=== PATIENT | male | born 1935 | race African-American/Black ===

== ENCOUNTER 2016-12-11 10:53 | Outpatient (CLI) | payer MEDICARE, OTHER ==
--- NOTE | 2016-12-11 13:25 | RAD ---
3 VIEWS RIGHT ANKLE: Date: 12/11/16 HISTORY: Follow-up fracture. COMPARISON: None available. FINDINGS: There is a comminuted fracture partially imaged involving the distal right tibial metaphysis. There is also fracture involving the distal right fibula with associated periosteal reaction consistent wi th smooth, benign-appearing periosteal reaction suggesting interval healing of the distal right fibu lar fracture. There is callus formation seen anterior and medial to the fracture involving the dista l tibia, as well as laterally suggesting mild interval healing. There is mottled appearance of the talus, some of which could be related to disuse osteopenia. Talus is difficult to further evaluate on this exam. Vascular calcifications seen. IMPRESSION: 1. Healing fractures involving the distal tibia and fibula with persistent mild separation of fract ure fragments involving the distal tibia. 2. 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 3. Subcutaneous soft tissue swelling at the ankle, greater medially. POS: [facility]
--- NOTE | 2016-12-11 13:31 | RAD ---
LEFT ANKLE 3 VIEWS: HISTORY: Tibial fracture. Followup. FINDINGS: Soft tissue swelling is evident about the ankle. Osseous structures are markedly demineralized. Os teophytosis involves the ankle and hindfoot. Soft tissue swelling is apparent. No displaced fractu res are visible. There is prominent calcification of the arterial structures. IMPRESSION: 1. Prominent soft tissue swelling. No ankle fractures are apparent. 2. Osteoporosis. 3. Atherosclerosis. POS: [facility]
--- NOTE | 2016-12-11 13:58 | RAD ---
LEFT TIBIA AND FIBULA 2 VIEWS: Date: 12/11/16 HISTORY: Follow-up of fracture. COMPARISON: None. FINDINGS: There are vascular calcifications noted. 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 There is evidence of some bony demineralization related to the knee with some subchondral lucency, particularly in the femoral condyle regions. Vascular calcifications are seen. There is some subtle deformity to the di stal fibular shaft. This is potentially an area of an old fracture. I do not see any signs of an acu te fracture. Bony demineralization and arthritic changes of the ankle joint. Please refer to the [facility]ngela [facility] report concerning additional findings in this area. IMPRESSION:; No signs of any acute fracture of the tibia or fibula. Possible old distal fibular fracture is discu ssed above. POS: [facility]
--- NOTE | 2016-12-11 14:05 | RAD ---
2 VIEWS RIGHT TIBIA AND FIBULA: Date: 12/11/16 HISTORY: Follow-up fracture. COMPARISON: None available. FINDINGS: There is a spiral-type fracture involving the distal right tibial diaphysis with separation of the f racture fragments. There is mild callus formation about the fracture. There is also evidence of a he aling fracture involving the distal fibula. No additional fracture is seen. There is a mottled appea prakash of the tarsal bones and talus which may be related to disuse osteopenia/osteoporosis. Vascular calcifications are seen. There is a very small joint effusion at the knee. IMPRESSION: 1. Healing fractures distal tibia and fibula. 2. 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 3. Prominent subcutaneous soft tissue swelling dorsal aspect of the foot as well as at the medial a nd lateral aspect of the ankle. POS: [facility]
== END 2016-12-11 10:54 | disposition home or self-care (01) ==
LOC: MADRAD 10:53
PROVIDERS: ATTEND Family Medicine
DX: S82.111A Displaced fracture of right tibial spine, initial encounter for closed fracture (principal); M79.605 Pain in left leg; S82.301A Unspecified fracture of lower end of right tibia, initial encounter for closed fracture; S82.831A Other fracture of upper and lower end of right fibula, initial encounter for closed fracture; M25.471 Effusion, right ankle; M79.89 Other specified soft tissue disorders; M81.0 Age-related osteoporosis without current pathological fracture; I70.90 Unspecified atherosclerosis

== ENCOUNTER 2017-03-26 13:41 | Outpatient (CLI) | payer MEDICARE, OTHER ==
--- NOTE | 2017-03-26 16:10 | RAD ---
RIGHT LOWER LEG TWO VIEWS: HISTORY: Leg fracture. Follow-up. COMPARISON: 12/11/2016 FINDINGS: Comminuted minimally displaced distal tibia and fibula fractures are again demonstrated. Periosteal reaction and callus formation has increased slightly, although fracture planes remain lucent. Alig nment is unchanged. There is prominent calcification in the arterial structures. Osseous structure s are demineralized. IMPRESSION: 1. Healing right lower leg fractures. 2. Atherosclerosis. POS: [facility]
--- NOTE | 2017-03-26 16:12 | RAD ---
RIGHT LOWER LEG TWO VIEWS: HISTORY: Leg fracture. Follow-up. COMPARISON: 12/11/2016 FINDINGS: Comminuted minimally displaced fractures involving the distal right tibia and fibula are unchanged i n alignment. Periosteal reaction and callus formation have increased slightly, although the fractur e planes remain very lucent. Osseous structures are demineralized. There is prominent calcificatio n of the arterial structures. IMPRESSION: 1. Healing right leg fractures. 2. Atherosclerosis. POS: [facility]
== END 2017-03-26 13:42 | disposition home or self-care (01) ==
LOC: MADRAD 13:41
PROVIDERS: ATTEND Orthopaedic Surgery
DX: S82.891D Other fracture of right lower leg, subsequent encounter for closed fracture with routine healing (principal); S82.251D Displaced comminuted fracture of shaft of right tibia, subsequent encounter for closed fracture with routine healing; S82.451D Displaced comminuted fracture of shaft of right fibula, subsequent encounter for closed fracture with routine healing